=== PATIENT | female | born 1965 | race Caucasian/White ===

== ENCOUNTER 2017-02-21 17:49 | Observation (INO) | payer BC ==
[~2017-02-21] VITALS: Ht 168.9 cm; Wt 102.4 kg
[~2017-02-21 17:49] MED LIST: FIORICET,ESG1 TABLET PO; HYDROCODON-ACE1 EAC7 PO; MOTRIN800 MG PO; NOHOMEMEDS; TAMIFLU75 MG PO; TESSALON200 MG PO
[2017-02-21 18:40] LABS: HEMATOCRIT 39.2 % (36.0-46.0); MCH 32.6 PG (29.0-34.0); MCHC 34.9 G/DL (30.0-36.0); MCV 93.3 FL (83-99); MEAN PLAT.VOLUME 9.8 uM^3 (9.5-12.4); PLATELET COUNT 314 K/uL (156-360); RBC DIS.WIDTH-CV 14.2 % (11.8-14.6); RBC DIS.WIDTH-SD 48.1 % (39-53); WHITE BLOOD COUNT 6.4 K/uL (4.1-10.2)
[2017-02-21 18:57] LABS: CHLORIDE 105 mEq/L (99-109); SODIUM 138 mEq/L (136-147)
[2017-02-21 18:59] LABS: GLUCOSE 90 mg/dL (70-99)
[2017-02-21 19:01] LABS: ANION GAP 9 MEQ/L (2-14)
[2017-02-21 19:03] LABS: GFR ESTIMATE (CALCULATED) > 59 mL/min/
[2017-02-21 19:04] LABS: UREA NITROGEN (BUN) 18 mg/dL (9-23)
[2017-02-21 19:09] LABS: TROP-I INTERPRETATION NEGATIVE; TROPONIN-I < 0.01 ng/mL (0.0-0.30)
[2017-02-21 19:27] LABS: D-DIMER ELISA < 150.00 ng/mLDDU (<230)
[2017-02-21] MEDS ORDERED: CLONIDINE HCL0.3 MG PO (20:17)
[2017-02-21] MEDS ORDERED: FOLIC ACID1 MG PO (20:22)
[2017-02-21 20:26] LABS: TOTAL BILIRUBIN 0.6 mg/dL (0.0-1.0)
[2017-02-21 20:27] LABS: ALKALINE PHOSPHATASE 83 IU/L (3-129)
[2017-02-21] MEDS ORDERED: OMEPRAZOLE20 MG PO (20:27)
[2017-02-21 20:29] LABS: DIRECT BILIRUBIN 0.2 mg/dL (0.0-0.3)
[2017-02-21] MEDS ORDERED: FUROSEMIDE20 MG PO (20:30)
[2017-02-21 20:31] LABS: LIPASE 24 U/L (1.0-51.0)
[2017-02-21] MEDS ORDERED: MELOXICAM15 MG PO (20:31)
[2017-02-21] MEDS ORDERED: METHOTREXATE2.5 MG PO (20:34)
[2017-02-21] MEDS ORDERED: [UNRECOGNIZED DRUG - REMARK] PO ×2 (20:38→20:40)
[2017-02-21 22:41] VITALS: BP 123/59
[2017-02-22 01:29] LABS: TROP-I INTERPRETATION NEGATIVE; TROPONIN-I < 0.01 ng/mL (0.0-0.30)
[2017-02-22 04:00] VITALS: BP 123/57
[2017-02-22 07:02] LABS: HEMATOCRIT 37.6 % (36.0-46.0); MCH 32.6 PG (29.0-34.0); MCHC 33.8 G/DL (30.0-36.0); MCV 96.7 FL (83-99); MEAN PLAT.VOLUME 9.9 uM^3 (9.5-12.4); PLATELET COUNT 278 K/uL (156-360); RBC DIS.WIDTH-CV 14.8 % (11.8-14.6); RBC DIS.WIDTH-SD 52.2 % (39-53); RED BLOOD COUNT 3.89 M/uL (3.80-5.20); WHITE BLOOD COUNT 4.6 K/uL (4.1-10.2)
[2017-02-22 07:05] VITALS: BP 116/66
[2017-02-22 07:26] LABS: TROP-I INTERPRETATION NEGATIVE; TROPONIN-I < 0.01 ng/mL (0.0-0.30)
[2017-02-22 07:32] LABS: ANION GAP 9 MEQ/L (2-14); CHLORIDE 104 MEQ/L (99-109); GFR ESTIMATE (CALCULATED) > 59 mL/min/; GLUCOSE 124 mg/dL (70-99); SAMPLE HEMOLYSIS CHECK 0; SAMPLE ICTERIC CHECK 0; SAMPLE LIPEMIA CHECK 0; SODIUM 140 MEQ/L (136-147); UREA NITROGEN (BUN) 18 mg/dL (9-23)
[2017-02-22 07:42] LABS: POTASSIUM 4.9 MEQ/L (3.7-5.4)
[2017-02-22 11:38] VITALS: BP 112/66
[2017-02-22] MEDS ORDERED: PRAVACHOL40 MG PO (13:10)
[2017-02-22] MEDS ORDERED: ASPIR-LOW81 MG PO (13:11)
== END 2017-02-22 13:46 | disposition home or self-care (01) ==
LOC: EME 17:49 → EDOF 20:35 → ENRESERV 20:36 → 5WEST 22:19 → ENPENDDIS 02-22 → 5WEST 02-22 13:46
PROVIDERS: Nurse Practitioner Adult Health
DX: R07.89 Other chest pain (principal); I10 Essential (primary) hypertension; J45.909 Unspecified asthma, uncomplicated; M06.9 Rheumatoid arthritis, unspecified; R00.2 Palpitations; I44.0 Atrioventricular block, first degree; I45.81 Long QT syndrome; R20.0 Anesthesia of skin; R42 Dizziness and giddiness; Z79.82 Long term (current) use of aspirin; Z87.891 Personal history of nicotine dependence; Z88.1 Allergy status to other antibiotic agents; Z88.5 Allergy status to narcotic agent
CPT/HCPCS: 71020; 80048; 80076; 83690; 83880; 84443; 84484; 85027; 85379; 93005; 99281; 99285; G0378